=== PATIENT | male | born 1985 | race Two or more races ===

== ENCOUNTER 2020-01-25 14:54 | Emergency (ER) | payer SELFPAY ==
[~2020-01-25] VITALS: Ht 190.5 cm; Wt 117.9 kg
[2020-01-25 15:12] VITALS: BP 133/75
--- NOTE | 2020-01-25 16:24 | NUR ---
CALLED IN WAITING ROOM. PT LEFT W/OUT BEING SEEN BY ED PROVIDER.
== END 2020-01-25 16:37 | disposition left against medical advice (07) ==
LOC: ER 14:54
DX: Z53.21 Procedure and treatment not carried out due to patient leaving prior to being seen by health care provider (principal); L03.116 Cellulitis of left lower limb

== ENCOUNTER 2020-01-25 17:02 | Emergency (ER) | payer SELFPAY ==
[~2020-01-25] VITALS: Ht 190.5 cm; Wt 117.9 kg
[2020-01-25 17:18] VITALS: BP 136/77
--- NOTE | 2020-01-25 18:00 | NUR ---
Patient discharged to home in stable condition. Written and verbal after care instructions given. Patient verbalizes understanding of instruction.
== END 2020-01-25 18:00 | disposition home or self-care (01) ==
LOC: ER 17:02
DX: L03.116 Cellulitis of left lower limb (principal); Z59.0 Homelessness; W57.XXXA Bitten or stung by nonvenomous insect and other nonvenomous arthropods, initial encounter; Y93.89 Activity, other specified; Y92.89 Other specified places as the place of occurrence of the external cause; Y99.8 Other external cause status